=== PATIENT | female | born 1980 | race Caucasian/White ===

== ENCOUNTER 2017-06-04 08:36 | Emergency (ER) | payer BC ==
[~2017-06-04] VITALS: Ht 152.4 cm; Wt 47.9 kg
[~2017-06-04 08:36] MED LIST: CALC625T13; CHOL400T; MISCCAP80; PRENTAB26 PO; [UNRECOGNIZED DRUG - CODE]
[2017-06-04 08:37] VITALS: Ht 152.4 cm; Wt 47.9 kg
[2017-06-04] MEDS ORDERED: GELATIN SPONGE 12-7MM EXT ONE (09:00)
--- NOTE | 2017-06-04 09:25 | EMERGENCY ROOM VISIT NOTE ---
ED Visit Note First contact with patient: 08:40 Chief Complaint: Left second Finger Laceration History of Present Illness: This patient is a 36-year-old female who presents to the Emergency Department by private vehicle for evaluation of their left second finger laceration. Patient sustained the laceration while cutting green in her kitchen, states that he slipped and cut the tip of her finger. They report a moderate amount of bleeding initially, and she has been able to get the bleeding to stop. They deny any numbness or tingling into the distal extremity. They report no decreased range of motion of the affected digit. They have not taken any medication for pain. Patient rates current discomfort as a 3/10. Patient denies any other injuries. Patient's Tetanus status is currently up-to-date. Medications: Reviewed in chart Allergies: Reviewed in chart PMH: No significant past medical or surgical history SHx: Lives at home. She is a grad student at [employer]. She denies tobacco use. ROS: All pertinent positive and negative review of systems are appropriately documented in the History of Present Illness. Physical Exam: VITAL SIGNS - Vital signs and nursing notes were reviewed. GENERAL - Well appearing and in no acute distress. Communicates well with provider and answers questions appropriately. SKIN - There is a 1 cm long avulsion laceration noted to the tip of the left second finger. The laceration to the tip of the fingernail, but does not extend into the nailbed. No foreign bodies appreciated. Upon further examination there are no deep structures including vessel, tendon, or bony structures appreciated. There is active bleeding noted. MUSCULOSKELETAL - Laceration as described above. + 5/5 strength appreciated of the affected digit. Full range of motion of the affected digit. NEUROLOGIC - No sensory defects of the affected finger were appreciated utilizing light touch for evaluation. VASCULAR - Capillary refill was brisk. ED Course: Patient was seen and evaluated by myself. Costs and benefits of performing primary wound closure versus no repair were discussed with the patient who verbalizes understanding. Verbal consent was obtained prior to performing the procedure. A finger tourniquet was applied to the left second finger. The wound was cleansed and prepped in the typical sterile fashion utilizing normal saline and Betadine. The wound was sterilely draped. The wound was further examined and demonstrated the above findings. The wound was copiously irrigated with normal saline and Betadine. The wound was covered with a piece of Gelfoam and wrapped with sterile dressing. The finger tourniquet was then removed and hemostasis was achieved. Patient tolerated the procedure well. No complications were met. Patient was educated on worrisome symptoms for return visit to the Emergency Department. Patient discharged to home in good condition and ambulatory. Current/Historical Medications Miscellaneous Medications Cholecalciferol (Vitamin D) Allergies Coded Allergies: Morphine (Unverified Allergy, Intermediate, HIVES, 06/04/17) Vital Signs Date Time Temp Pulse Resp B/P (MAP) Pulse Ox O2 Delivery O2 Flow Rate FiO2 06/04/17 09:26 36.4 96 20 118/71 100 06/04/17 08:37 36.4 96 20 118/71 100 Departure Information Impression Primary Impression: Avulsion of skin of index finger without complication Dispostion Home / Self-Care Condition GOOD Referrals Adrienne Hadley C.R.N.P. (PCP) Patient Instructions ED Avulsion Dermal, [facility] Additional Instructions You have been treated in the Emergency Department today for your finger avulsion. Leave the GELFOAM and dressing in place for the next 48 hours. Keep the dressing clean and dry until time for removal. To remove the GELFOAM dressing, remove the overlying tape and then soak the wound in warm water until the piece of GELFOAM can be easily removed. Proper wound care is essential for adequate wound healing and infection prevention. You can shower and clean the wound with soap and water. Do not scour over the wound, pat dry with a towel. You can use an antibiotic ointment with a dressing/bandage over the wound for the next 3-4 days. After this time you may leave the wound dry and open to the air. Look for signs of infection of the wound including: increased pain, swelling, foul discharge, streaking, or increased temperature. If any of these are noticed you should return to the Emergency Department for further assessment and treatment. As with any laceration you may have received nerve damage to the surrounding tissues. This damage could be permanent. For pain control, you can use the following [id number] medicines (if >12 yo): - Regular strength (325mg/tab) Tylenol (acetaminophen) 2 tabs every 4-6 hours as needed. Do not exceed 10 tablets in a 24 hour period. Avoid taking more than 3000 mg of Tylenol per day. This includes any other sources of acetaminophen you may take on a regular basis. - Regular strength (200 mg/tab) Advil (ibuprofen) 1-2 tabs every 4-6 hours as needed. Do not exceed a dose of 2400 mg per day. Return to the emergency department if your symptoms worsen despite treatment course outlined above. Work Instructions Return To Work: 1 day Problem Qualifiers Primary Impression: Avulsion of skin of index finger without complication Encounter type: initial encounter Qualified Codes: S61.208A - Unspecified open wound of other finger without damage to nail, initial encounter
[2017-06-04 09:26] VITALS: BP 118/71; PULSE 96; TEMP 36.4; O2SAT 100
== END 2017-06-04 09:26 | disposition home or self-care (01) ==
LOC: C.EDB 08:36
DX: S61.311A Laceration without foreign body of left index finger with damage to nail, initial encounter (principal); W26.0XXA Contact with knife, initial encounter; Y93.G1 Activity, food preparation and clean up